=== PATIENT | female | born 1990 ===

== ENCOUNTER 2022-01-25 05:34 | Emergency (ER) | payer OTHER ==
[2022-01-25] MEDS ORDERED: Lidocaine 2% with EPINEPHrine 1:200,000 20 ML SDV INJECT ONE (05:49)
[2022-01-25] MEDS ORDERED: Bacitracin Oint 1 GM U/D Packet TOP ONE (06:51)
== END 2022-01-25 07:40 | disposition home or self-care (01) ==
LOC: DL.ED 05:34
DX: S06.0X0A Concussion without loss of consciousness, initial encounter (principal); S01.81XA Laceration without foreign body of other part of head, initial encounter; S80.212A Abrasion, left knee, initial encounter; Z88.0 Allergy status to penicillin; Z88.2 Allergy status to sulfonamides; Z88.8 Allergy status to other drugs, medicaments and biological substances; W10.8XXA Fall (on) (from) other stairs and steps, initial encounter
CPT/HCPCS: 12002; 12014; 70450; 99282; 99283-25